=== PATIENT | female | born 1930 | race Asian ===

== ENCOUNTER 2019-04-20 07:15 | Day surgery (SDC) | payer MEDICARE, OTHER ==
[~2019-04-20] VITALS: Ht 149.9 cm; Wt 39.6 kg
[2019-04-20] MEDS ORDERED: SODIUM CHLORIDE 0.9% 1,000 ML IV SCH (07:35)
[2019-04-20 07:51] VITALS: BP 92/60
[2019-04-20 08:14] LABS: MEAN CORPUSCULAR HEMOGLOBIN 33.1 pg (27.0-34.8); MEAN CORPUSCULAR HGB CONC 33.3 g/dL (32.4-35.8); MEAN CORPUSCULAR VOLUME 99.3 fL (80-100); MEAN PLATELET VOLUME 6.5 fL (7.4-10.4); PLATELET COUNT 352 x10^3/uL (130-400); RED BLOOD COUNT 4.19 x10^6/uL (3.82-5.3); RED CELL DISTRIBUTION WIDTH 14.4 % (9.6-15.2)
[2019-04-20 08:17] LABS: MD YES
[2019-04-20 08:34] LABS: BAND#(MANUAL) 0.25 x10^3/uL; BANDS%(MANUAL) 1 % (0-7); EOS#(MANUAL) 9.07 x10^3/uL (0.0-0.4); EOS% (MANUAL) 36 % (1-7); LYMPH#(MANUAL) 1.51 x10^3/uL (1-3.4); LYMPHS% (MANUAL) 6 % (22-44); MONOS% (MANUAL) 2 % (2-9); SEG#(MANUAL) 13.86 x10^3/uL (1.8-6.8); SEGS% (MANUAL) 55 % (42-75)
[2019-04-20 08:35] LABS: <PLATELET ESTIMATE> ADEQUATE; <PLT MORPHOLOGY> NORMAL PLT MORPH; <RBC MORPHOLOGY> NORMAL
[2019-04-20] MEDS ORDERED: FENTANYL PF 100 MCG/2ML ONE (10:04)
[2019-04-20] MEDS ORDERED: MIDAZOLAM 1 MG/ML, 5ML ONE (10:04)
[2019-04-20] MEDS ORDERED: NALOXONE 1 MG/ML, 2ML ONE (10:04)
[2019-04-20] MEDS ORDERED: FLUMAZENIL 0.1 MG/1 ML, 5ML ONE (10:04)
== END 2019-04-20 12:15 | disposition home or self-care (01) ==
LOC: OUT 07:15
PROVIDERS: ATTEND Radiology Diagnostic Radiology
DX: D72.1 Eosinophilia (principal); Z79.899 Other long term (current) drug therapy; J44.9 Chronic obstructive pulmonary disease, unspecified
CPT/HCPCS: 36415; 38222; 77012; 85025; 85060; 85097; 88237; 88264; 88280; 88305; 88311; 88313; 99156; J2250; J3010; J7030; J2310